=== PATIENT | female | born 1960 | race Caucasian/White ===

== ENCOUNTER 2017-07-30 13:59 | Emergency (ER) | payer OTHER ==
[~2017-07-30] VITALS: Ht 170.2 cm; Wt 75.0 kg
[2017-07-30 14:23] VITALS: BP 113/68; PULSE 81; RESP 18; TEMP 98.8; O2SAT 100
[2017-07-30] MEDS ORDERED: SYNT88TA PO (14:49)
--- NOTE | 2017-07-30 15:08 | PD ---
HPI Chief Complaint: Musculoskeletal Complaint Time Seen by Provider: 14:56 Travel History International Travel<30 days: No Contact w/Intl Traveler<30days: No Traveled to known affect area: No History of Present Illness HPI 56-year-old female presents emergency department for evaluation of left knee pain after a slip and fall that occurred today. Patient states that she slipped and fell landing on her left knee and left elbow. She denies any head trauma, loss of consciousness, blurred vision. Denies any back or neck pain. States her knee pain is moderate in severity, aching, and increases with movement. Says his has swelled up significantly since the event. She denies any numbness or tingling. Says her left elbow feels scraped and does have full range of motion. No significant pain to her elbow. She does not know when her last tetanus vaccine was. She is visiting from [place] and is due to return in 1 week. PFSH Past Medical History Cardiovascular Problems: Yes (heart murmur ) Thyroid Disease: Yes (hypo) Tetanus Vaccination: Unknown Influenza Vaccination: Yes ?: Not Past Surgical History Gynecologic Surgery: Yes (endometrial ablasion ) Oral Surgery: Yes (jaw SX) Social History Alcohol Use: Yes (oc.) Tobacco Use: No Substance Use: No Allergies-Medications (Allergen,Severity, Reaction): Coded Allergies: No Known Allergies (Verified Allergy, Unknown, 07/30/17) Reported Meds & Prescriptions Reported Meds & Active Scripts Active Wheelchair (Device) 1 Mis Mis Ea .XX DIRECTED Hydrocodone-Acetaminophen 5-325 mg Tab 1 Tab PO Q4H PRN 3 Days Reported Synthroid (Levothyroxine Sodium) 88 Mcg Tab 62.5 Mcg PO DAILY Review of Systems Except as stated in HPI: all other systems reviewed are Neg Physical Exam Narrative GENERAL: Well-nourished, well-developed patient. SKIN: Focused skin assessment warm/dry. HEAD: Normocephalic. EYES: No scleral icterus. No injection or drainage. NECK: Supple, trachea midline. No JVD or lymphadenopathy. No midline tenderness CARDIOVASCULAR: Regular rate and rhythm without murmurs, gallops, or rubs. RESPIRATORY: Breath sounds equal bilaterally. No accessory muscle use. MUSCULOSKELETAL: No cyanosis, or edema. Left knee-mild edema with multiple abrasions. Limited range of motion secondary to pain. TTP to knee joint. Popliteal dorsalis pedis pulses present. Neurovascularly intact Left elbow-superficial abrasion, full range of motion without limits. no tenderness palpation. BACK: Nontender without obvious deformity. No CVA tenderness. No midline tenderness Data Data Last Documented VS Vital Signs Date Time Temp Pulse Resp B/P (MAP) Pulse Ox O2 Delivery O2 Flow Rate FiO2 07/30/17 16:36 16 07/30/17 14:23 98.8 81 113/68 (83) 100 Orders Orders Knee, Complete (4vws) (07/30/17 ) Acetamin-Hydrocod 325-5 Mg ([place] 5-325 (07/30/17 15:15) Tetanus/Diphtheria Tox Adult (Tetanus/Di (07/30/17 15:15) Support Splint (07/30/17 16:01) Immobilizer Knee 20 Inch (07/30/17 ) Crutches (07/30/17 17:16) Ed Discharge Order (07/30/17 17:16) Immobilizer Knee 20 Inch (07/30/17 ) MDM Medical Decision Making Medical Screen Exam Complete: Yes Emergency Medical Condition: Yes Differential Diagnosis Left knee contusion, left elbow abrasion, left knee fracture Narrative Course 56-year-old female presents to the ED for evaluation of left knee pain and left elbow pain after slip and fall that occurred today. Vital signs are stable. Knee x-ray ordered. Hydrocodone administered emergency department for pain. Last Impressions Knee X-Ray 07/30/17 0000 Signed Impressions: Service Date/Time: Sunday, July 30, 2017 15:15 - CONCLUSION: 1. Acute fracture involving the lateral tibial plateau which extends through the medial tibial spine. 2. Large suprapatellar knee joint effusion with fat-fluid level. 3. Mild degenerative changes involving the patellofemoral joint. Dileep Whipple MD Spoke with Dr. Panchal who recommended I speak with ortho. Dr. Hubbard, orthopedics suggested non operative management based off of findings in today's xrays. Knee immobilizer. Crutches. Advised to follow up with her PCP and orthopedic physician once she returns home. Hydrocodone for pain relief. May alternate with Ibuprofen. Return to the ED for worsening or persistent symptoms. Diagnosis Primary Impression: Elbow abrasion Qualified Codes: S50.312A - Abrasion of left elbow, initial encounter Additional Impression: Tibial plateau fracture, left Qualified Codes: S82.142A - Displaced bicondylar fracture of left tibia, initial encounter for closed fracture Referrals: Mark Hubbard MD Orthopedist Primary Care Physician Additional Instructions: Use ice or heat for symptom relief. Elevate the joint above the heart to reduce swelling. You may use compression with Horacio wrap or similar to reduce swelling. If symptoms persist or worsen, return to the emergency department. Follow up with your primary care physician within 2 days. Scripts Wheelchair (Wheelchair) 1 Mis Mis EA .XX DIRECTED, #1 0 Refills Prov: Roman Panchal MD 07/30/17 Hydrocodone-Acetaminophen (Hydrocodone-Acetaminophen) 5-325 mg Tab 1 TAB PO Q4H Y for PAIN for 3 Days, #15 TAB 0 Refills Prov: Roman Panchal MD 07/30/17 Disposition: 01 DISCHARGE HOME Condition: Stable Khadijah Amezquita Jul 30, 2017 15:08
[2017-07-30] MEDS ORDERED: TETANUS/DIPHTHERIA TOXOID ADULT 0.5 ML VIAL IM ONE (15:15)
[2017-07-30] MEDS ORDERED: ACETAMINOPHEN/HYDROcodone 325 MG/5 MG TAB PO ONE (15:15)
--- NOTE | 2017-07-30 15:53 | RADRPT ---
EXAM DATE/TIME: 07/30/2017 15:15 [facility] COMPARISON: No previous studies available for comparison. INDICATIONS : Left knee pain post fall today. MEDICAL HISTORY : None. SURGICAL HISTORY : None. ENCOUNTER: Initial ACUITY: 1 day PAIN SCORE: 8/10 LOCATION: Left knee. FINDINGS: There is evidence of an acute fracture involving the lateral tibial plateau which extends through the medial tibial spine. Large suprapatellar joint effusion with fat-fluid level is noted. Mild degenera tive changes are noted involving the patellofemoral joint. CONCLUSION: 1. Acute fracture involving the lateral tibial plateau which extends through the medial tibial spine. 2. Large suprapatellar knee joint effusion with fat-fluid level. 3. Mild degenerative changes involving the patellofemoral joint. Dileep Whipple MD on July 30, 2017 at 15:42 Board Certified Radiologist. This report was verified electronically.
[2017-07-30] MEDS ORDERED: HYDR-3516 PO (15:58)
[2017-07-30 16:36] VITALS: RESP 16
[2017-07-30] MEDS ORDERED: WHEEMIS3 ×2 (17:32→17:33)
== END 2017-07-30 17:54 | disposition home or self-care (01) ==
LOC: PHEFT 13:59
DX: S82.142A Displaced bicondylar fracture of left tibia, initial encounter for closed fracture (principal); S50.312A Abrasion of left elbow, initial encounter; R01.1 Cardiac murmur, unspecified; E03.9 Hypothyroidism, unspecified; W01.0XXA Fall on same level from slipping, tripping and stumbling without subsequent striking against object, initial encounter; Z23 Encounter for immunization
CPT/HCPCS: 73564; 90471; 90714; 99283; E0113; L1830